=== PATIENT | male | born 1990 | race Caucasian/White ===

== ENCOUNTER 2021-04-01 16:48 | Outpatient (REF) | payer SELFPAY ==
[2021-04-01 19:02] LABS: HCT 46.3 % (40.0-50.0); HGB 15.6 g/dL (13.5-17.5); MCH 31.7 pg (27.0-33.0); MCHC 33.7 % (32.0-36.0); MCV 94.1 fL (80-95); MPV 11.1 fL (8.0-11.0); Platelet Count 272 10^3/uL (130-400); RBC 4.92 10^6/uL (4.36-5.78); RDW-SD 42.2 fL; WBC 7.11 10^3/uL (4.4-10.8)
[2021-04-01 20:07] LABS: ALT 53 U/L (16-63); AST 32 U/L (15-37); Albumin 4.6 g/dL (3.4-5.0); Alkaline Phosphatase 68 U/L (46-116); Anion Gap 11.9 mmol/L (3-11); BUN 14 mg/dL (7-18); Bilirubin, Total 0.4 mg/dL (0.2-1.0); CO2 25.1 mmol/L (21.0-32.0); Calcium 10.4 mg/dL (8.5-10.1); Chloride 101 mmol/L (98-107); Glucose 93 mg/dL (74-106); Potassium 4.2 mmol/L (3.5-5.1); Sodium 138 mmol/L (136-145); Total Protein 7.8 g/dL (6.4-8.2)
== END 2021-04-01 16:49 | disposition home or self-care (01) ==
LOC: NCHCN 16:48
PROVIDERS: Visit Provider Nurse Practitioner Family
DX: F10.11 Alcohol abuse, in remission (principal)
CPT/HCPCS: 80053; 85027

== ENCOUNTER 2021-05-15 19:02 | Emergency (ER) | payer MEDICAID, SELFPAY ==
[2021-05-15 19:05] VITALS: BP 142/88; PULSE 88; RESP 14; TEMP 36.5; O2SAT 96
--- NOTE | 2021-05-15 19:19 | ED.GENADUL_ITS ---
Discharge Plan Disposition Patient Disposition: HOME Condition: Improving Discharge Details Clinical Impression: Laceration of thumb, left Primary Care Provider: Unknown,Unknown ED Provider: Romaine Paz Home Meds and New Rx's Prescriptions: Continued buspirone 5 mg Tablet PO BID PRN0RF Rx Instructions: unsure of dose gabapentin 100 mg Tablet 100 mg PO BID PRN0RF hydroxyzine HCl 50 mg Tablet 50 mg PO TID 0RF trazodone 50 mg Tablet 50 mg PO HS 0RF Discharge Instructions Instructions: Laceration (ED) Additional Instructions: Laceration repaired without difficulty. Keep the laceration clean and dry, change antibiotic dressing daily. Rest, elevate, [id number] Tylenol and/or Motrin as directed for discomfort. Please watch for new or worsening symptoms and return to the ER for any concerns. Sutures removed in approximately 10 days Stand Alone Forms: Work Release Discharge Data Discharge Date/Time-TO BE ENTERED AT DEPARTURE: 05/15/21 20:27 Medical Decision Making 30-year-old gentleman, [id number], presents for evaluation of left thumb laceration that occurred at work on a knife just prior to arrival. T etanus status unknown. Denies any other injury, numbness, tingling, weakness. Will update tetanus. No clear indication for x-ray as extremely low suspicion for bony involvement or foreign body. Laceration will require repair. Laceration repaired without difficulty. Patient tolerated well. The suture wound was then cleaned and dressed appropriately. Standard discharge and return precautions were provided This documentation was generated using [employer] dictation system, please disregard any oddities of phrase or misspellings. Date: 05/15/21 Time: 19:29 Note: Patient seen, examined, and discussed with MIGNON Paz. I agree with treatment plan as discussed/documented. HPI General Mode of arrival: ambulatory . Date/Time Provider Initiated Documentation: 05/15/21 19:06 . Limitations to Documentation: no limitations . Information obtained by: patient . History of Present Illness 30 year old M presents to the emergency department with the chief complaint of L thumb lac, described as mild, with intensity rated at 3. Quality is described as aching, and is localized to the left and upper extremity. Patient reports no radiation. Patient started experiencing this hour(s) (1) and it has been constant. improves with No relieving factors improve symptom(s), No exacerbating factors reported . Patient notes no other symptoms.. Patient did receive the following treatments prior to arrival, none Related Data Home Medications Medication Instructions Recorded Confirmed buspirone 5 mg tablet mg PO BID PRN 05/15/21 gabapentin 100 mg tablet 100 mg PO BID PRN 05/15/21 05/15/21 hydroxyzine HCl 50 mg tablet 50 mg PO TID 05/15/21 05/15/21 trazodone 50 mg tablet 50 mg PO HS 05/15/21 05/15/21 Allergies Allergy/AdvReac Type Severity Reaction Status Date / Time No Known Allergies Allergy Unverified 05/15/21 19:12 General Stated Complaint: Laceration VINNY: 4 Review of Systems Constitutional Constitutional: Denies weakness Musculoskeletal Musculoskeletal: Denies arthralgias, Denies numbness and Denies tingling Integumentary/Breasts Skin/Breast: Denies erythema Neurologic Neurologic: Denies numbness, Denies tingling and Denies weakness PFSH All Active Problems (Updated 05/15/21 @ 20:16 by MIGNON Huggins) Laceration of thumb, left (Acute) Social History Smoking/Tobacco Use Status: Current every day Smoking risk assessment performed?: Yes Alcohol Intake: former Substance use type: does not use Do you feel safe at home: Yes Do you feel safe in your relationship?: Yes Exam Const General: cooperative, healthy appearing, comfortable and no acute distress Orientation: alert and awake [facility] Head: normal to inspection, normocephalic and atraumatic Eyes Conjunctivae: conjunctivae normal Neck Neck: normal visual inspection, trachea midline and supple Resp Effort & Inspection: normal respiratory effort and able to speak in complete sentences Cardio Rate: regular rate Rhythm: regular rhythm Skin General skin exam: no rashes or lesions noted Neuro General: patient alert, patient awake, moves all extremities and no focal motor deficits Cognition: normal cognition Speech: speech normal Gait: normal gait Sensory Exam: no sensory deficits noted Extrem General: full ROM and capillary refill normal Hand/finger images: 1. 2 cm flap laceration, well approximated. Bleeding controlled. No foreign body. Neuro, vascular, tendon intact. 5 out of 5 strength. Psych Appearance: grossly normal Mental Status: mental status grossly normal Course Vital Signs Vital signs: Vital Signs Temperature 36.5 C 05/15/21 19:05 Pulse 88 05/15/21 19:05 Respiratory Rate 14 05/15/21 19:05 Blood Pressure 142/88 H 05/15/21 19:05 Pulse Oximetry 96 05/15/21 19:05 Temperature 36.5 C 05/15/21 19:05 Temperature Source Skin 05/15/21 19:05 Pulse 88 05/15/21 19:05 Respiratory Rate 14 05/15/21 19:05 Respiratory Effort 05/15/21 19:14 Blood Pressure 142/88 H 05/15/21 19:05 Blood Pressure Position Sitting 05/15/21 19:05 Pulse Oximetry 96 05/15/21 19:05 Oxygen Delivery Method Room Air 05/15/21 19:05 Oxygen Flow Rate 0 05/15/21 19:05 Pain Level 7 05/15/21 19:05 Procedures Laceration Laceration 1: Site: hand Side (If applicable): right Size (cm): 2 Description: flap Depth: simple, single layer Local Anesthetic: Lidocaine 1% Amount of anesthesia used (mL): 4 Pre-repair: wound explored, irrigated extensively and deep structures intact Skin layer closed with: nylon Size (cm): 4-0 Number of sutures: 2 Technique: simple, interrupted
[2021-05-15] MEDS: Bacitracin 1 PACKET (20:25)
== END 2021-05-15 20:27 | disposition home or self-care (01) ==
LOC: ER 20:32
PROVIDERS: Emergency Provider Physician Assistant
DX: S61.012A Laceration without foreign body of left thumb without damage to nail, initial encounter (principal); W26.0XXA Contact with knife, initial encounter; Y99.0 Civilian activity done for income or pay
CPT/HCPCS: 12001; 90471

== ENCOUNTER 2021-05-25 10:42 | Emergency (ER) | payer MEDICAID, SELFPAY ==
--- NOTE | 2021-05-25 10:56 | W.ED.GENAD ---
Discharge Plan Disposition Patient Disposition: HOME Condition: Stable Discharge Details Clinical Impression: Visit for suture removal, Laceration of thumb, left Primary Care Provider: YOJANA TURCIOS ED Provider: Tamiko Shankar Home Meds and New Rx's Prescriptions: Continued buspirone 5 mg Tablet PO BID PRN0RF Rx Instructions: unsure of dose gabapentin 100 mg Tablet 100 mg PO BID PRN0RF hydroxyzine HCl 50 mg Tablet 50 mg PO TID 0RF trazodone 50 mg Tablet 50 mg PO HS 0RF Discharge Instructions Instructions: Laceration (ED) Additional Instructions: Please return immediately to the emergency department if you develop any new or worsening symptoms, if your condition does not improve as expected, or if you become otherwise concerned. It is extremely important that you call soon as possible to make an appointment to be seen in follow-up for this visit by your primary care doctor. Referrals: YOJANA TURCIOS, [employer]CHITECT [Primary Care Provider] - Discharge Data Discharge Date/Time-TO BE ENTERED AT DEPARTURE: 05/25/21 11:08 Medical Decision Making Bryn Reagan is a 30-year-old man without reported history of medical problems presenting to emergency department with laceration. Per patient record review, patient was seen here 05/15/2021 for laceration to the distal left thumb not involving the nail. Patient had 2 sutures placed, tetanus was updated. Patient reports no issues since laceration repair, no redness, drainage, pain. Patient reports that wound is healed well without issue. He denies any other complaints and states that he is here for suture removal at 10 days post repair as he was previously instructed. On exam Pt is well and non-toxic appearing. Laceration healing well without evidence of infection, sutures in place. Thumb is NVI. Two sutures removed without issue. Baseball splint provided to prevent wound re-opening under tension. Exam/hx at this time is not c/w infection of the wound, sepsis, other acute emergent medical condition. I had a discussion with Patient regarding return to emergency department precautions, home care, and importance of outpatient follow-up. Pt verbalizes understanding of the plan and is amenable. Patient discharged to home with clear plan for outpatient follow-up. All questions were answered. Disposition decision was made weighing the risks and benefits of hospitalization versus outpatient treatment, the risk for further decompensation, and the patient's wishes. Medical Records Medical records reviewed: Yes I reviewed the patient's medical records. HPI General Date/Time Provider Initiated Documentation: 05/25/21 10:44. Limitations to Documentation: no limitations. Information obtained by: patient, RN notes reviewed and old records reviewed. HPI Narrative: Bryn Reagan is a 30-year-old man without reported history of medical problems presenting to emergency department with laceration. Per patient record review, patient was seen here 05/15/2021 for laceration to the distal left thumb not involving the nail. Patient had 2 sutures placed, tetanus was updated. Patient reports no issues since laceration repair, no redness, drainage, pain. Patient reports that wound is healed well without issue. He denies any other complaints and states that he is here for suture removal at 10 days post repair as he was previously instructed. Related Data Home Medications Medication Instructions Recorded Confirmed buspirone 5 mg tablet mg PO BID PRN 05/15/21 gabapentin 100 mg tablet 100 mg PO BID PRN 05/15/21 05/15/21 hydroxyzine HCl 50 mg tablet 50 mg PO TID 05/15/21 05/15/21 trazodone 50 mg tablet 50 mg PO HS 05/15/21 05/15/21 Allergies Allergy/AdvReac Type Severity Reaction Status Date / Time No Known Allergies Allergy Unverified 05/15/21 19:12 General VINNY: 4 Review of Systems Narrative: Constitutional: denies fevers Eyes: denies eye pain ENT: denies ear pain, dental pain, sore throat Cardiovascular: denies chest pain Respiratory: denies SOB, cough GI: denies abdominal pain, vomiting, diarrhea : denies flank pain MSK: denies back pain, neck pain, arthralgias, myalgias Skin: denies rash Neuro: denies headaches, numbness, weakness PFSH All Active Problems (Updated 05/25/21 @ 10:55 by Tamiko Shankar MD) Laceration of thumb, left (Acute) Visit for suture removal (Acute) Social History Smoking/Tobacco Use Status: Current every day Smoking risk assessment performed?: Yes Alcohol Intake: former Substance use type: does not use Do you feel safe at home: Yes Do you feel safe in your relationship?: Yes Exam Narrative Exam Narrative: Constitutional: well and [id number], pleasant, conversing normally HENT: head atraumatic/normocephalic/normal inspection, mucous membranes moist Eyes: conjunctiva normal, sclera normal, pupils 3mm b/l Neck: no stridor, normal ROM, trachea midline Resp: normal work of breathing, speaking in full sentences Cardio: normal rate, normal rhythm Skin: warm, dry, normal color, no rash Neuro: alert, not altered, grossly non-focal, normal tone Ext: no edema, left thumb with distal laceration healing well, [address], no discharge, no erythema, no dehiscence, brisk cap refill, distal sensation intact, full painless ROM left 1st MCP/PIP joints Psych: normal mood, normal affect, normal behavior
[2021-05-25 11:00] VITALS: BP 121/59; PULSE 75; RESP 16; TEMP 36.7; O2SAT 96
== END 2021-05-25 11:08 | disposition home or self-care (01) ==
PROVIDERS: Emergency Provider Student in an Organized Health Care Education/Training Program; PCP Nurse Practitioner Family
DX: S60.012D Contusion of left thumb without damage to nail, subsequent encounter (principal); X58.XXXD Exposure to other specified factors, subsequent encounter; Z48.02 Encounter for removal of sutures
CPT/HCPCS: 29130